=== PATIENT | female | born 1985 | race Two or more races ===

== ENCOUNTER 2021-03-04 12:00 | Emergency (ER) | payer OTHER ==
[~2021-03-04] VITALS: Ht 172.7 cm; Wt 99.8 kg
[2021-03-04] MEDS ORDERED: PRENA1 TRUE CO1 EACH PO (12:25)
== END 2021-03-04 16:04 | disposition home or self-care (01) ==
LOC: ER 12:00
DX: R10.2 Pelvic and perineal pain (principal); Z3A.10 10 weeks gestation of pregnancy

== ENCOUNTER 2021-09-17 07:45 | Inpatient (IN) | payer OTHER ==
[~2021-09-17] VITALS: Ht 170.2 cm; Wt 121.6 kg
[~2021-09-17 07:45] MED LIST: PRENA1 TRUE CO1 EACH PO
== END 2021-09-26 14:19 | disposition home or self-care (01) | DRG 785 ==
LOC: LDR 09-24 07:00 → OB/GYN 09-24 11:00 → O/R 09-24 11:00 → OB/GYN 09-24 18:16
PROVIDERS: ADMIT Obstetrics & Gynecology; ATTEND Obstetrics & Gynecology
PROC: 0UB70ZZ Excision of Bilateral Fallopian Tubes, Open Approach (ICD-10-PCS; 2021-09-24)
PROC: 4A1HXCZ Monitoring of Products of Conception, Cardiac Rate, External Approach (ICD-10-PCS; 2021-09-24)
PROC: 10D00Z1 Extraction of Products of Conception, Low, Open Approach (ICD-10-PCS; principal; 2021-09-24 07:00)
DX: O34.211 Maternal care for low transverse scar from previous cesarean delivery (principal); Z3A.39 39 weeks gestation of pregnancy; Z37.0 Single live birth; Z20.822 Contact with and (suspected) exposure to COVID-19; Z30.2 Encounter for sterilization